=== PATIENT | female | born 1955 | race Hispanic/Latino ===

== ENCOUNTER 2023-10-12 10:52 | Outpatient (CLI) | payer MEDICARE, OTHER | END 2023-10-12 10:53 | disposition home or self-care (01) | LOC: RAD 10:52 | PROVIDERS: ATTEND Otolaryngology | DX: R13.10 Dysphagia, unspecified (principal); R63.30 Feeding difficulties, unspecified; M25.78 Osteophyte, vertebrae | CPT/HCPCS: 74230 ==